=== PATIENT | male | born 2000 | race Asian ===

== ENCOUNTER 2019-02-16 02:09 | Emergency (ER) | payer BC ==
[2019-02-16] MEDS: NS 0.9% 1000 ML** 1,000 ML IV ONE (02:44)
[2019-02-16 02:46] LABS: ABS Eosinophils 0.1 10^3/ul (0-0.6); ABS Lymphocytes 0.7 10^3/ul (1.0-4.8); ABS Monocytes 0.8 10^3/ul (0-0.8); ABS Neutrophils 9.5 10^3/ul (1.5-7.7); Eosinophil % 0.7 %; Hematocrit 44 % (42-52); Hemoglobin 15.4 g/dL (14.0-18.0); Lymphocyte % 6.3 %; Mean Corpuscular HGB Conc 35 g/dL (31-36); Mean Corpuscular Hemoglobin 32 pg (27-31); Mean Corpuscular Volume 90 fL (80-94); Mean Platelet Volume 7.4 fL (7.4-10.4); Nucleated Red Blood Cells % 0.1; Platelet Count 193 10^3/uL (150-450); Red Blood Count 4.84 10^6 /uL (4.18-5.48); Red Cell Distribution Width 13 % (10-15)
[2019-02-16 03:00] LABS: ALT 29 U/L (7-52); AST 49 U/L (13-39); Albumin 4.5 g/dL (3.2-5.2); Albumin/Globulin Ratio 1.7 (1-3); Alkaline Phosphatase 64 U/L (34-104); Anion Gap 8 mmol/L (2-11); BUN/Creatinine Ratio 13.6 (8-20); Blood Urea Nitrogen 16 mg/dL (6-24); CO2 Carbon Dioxide 24 mmol/L (22-32); Calcium 8.9 mg/dL (8.6-10.3); Chloride 101 mmol/L (101-111); EGFR African American 96.2 (>60); EGFR Non-African American 79.5 (>60); Globulin 2.7 g/dL (2-4); Glucose 147 mg/dL (70-100); Potassium 3.9 mmol/L (3.5-5.0); Sodium 133 mmol/L (135-145); Total Protein 7.2 g/dL (6.4-8.9)
[2019-02-16 03:21] LABS: Acetaminophen < 15 mcg/mL; Alcohol < 10 mg/dL (<10); Salicylate < 2.50 mg/dL (<30)
--- NOTE | 2019-02-16 03:22 | ED ---
Substance Abuse/Use - HPI Summary HPI Summary: Patient is a 18 y/o M presenting to [facility] via EMS with complaints of chest tightness, SOB, nausea, fatigue and cough. He states that he took Ritalin extended release around 1400 02/15/19. Patient states that he consumed half a tablet of 15 mg Ritalin and crushed up and snorted the other half. He later crushed and snorted 5 mg of Adderal. At around 0100 02/16/19, patient used his Juul with THC. Sx subsequently onset. Patient reports that he has used these substances previously. He denies alcohol consumption with these substances. He notes that his Sx are improved at present. No daily medications reported. NKDA endorsed. FMHx of cardiac disease is denied. PSHx of right hand surgery. On triage, pain is rated 5/10. Nothing is noted to aggravate/alleviate Sx. Home medications and allergies are reviewed. - History Of Current Complaint Chief Complaint: EDSubstanceAbuse Stated Complaint: SOB PER EMS Time Seen by Provider: 02/16/19 02:14 Hx Obtained From: Patient Onset/Duration of Drug/ETOH Abuse: Hours Ingestion History: Type/Name Of Drug - ritalin, adderall, THC, Amount Ingested - 15 mg ritalin, 5 mg adderall, Approximate Time Of Ingestion - 1400 02/15/19 ritalin, 0100 02/16/19 THC Overdose Characteristics: Oral, Inhalation Severity Currently: Moderate Aggravating Factor(s): Nothing Alleviating Factor(s): Nothing Associated Signs And Symptoms: Shortness Of Breath, Chest Pain, Nausea, Cough, Other: - fatigue - Allergies/Home Medications Allergies/Adverse Reactions: Allergies Allergy/AdvReac Type Severity Reaction Status Date / Time No Known Allergies Allergy Verified 02/16/19 02:09 Home Medications: Home Medications NK [No Home Medications Reported] 02/16/19 [History Confirmed 02/16/19] PMH/Surg Hx/FS Hx/Imm Hx Sensory History: Denies: Hx Legally Blind, Hx Deafness Opthamlomology History: Denies: Hx Legally Blind EENT History: Denies: Hx Deafness - Surgical History Surgery Procedure, Year, and Place: right hand surgery Infectious Disease History: No Infectious Disease History: Denies: Traveled Outside the [place] in Last 30 Days - Family History Known Family History: Negative: Cardiac Disease - Social History Alcohol Use: Occasionally Substance Use Type: Reports: Marijuana, Other Substance Use Comment - Amount & Last Used: Ritalin Smoking Status (MU): Light Every Day Tobacco Smoker Review of Systems Constitutional: Other - positive - substance usage Positive: Fatigue Positive: Chest Pain Positive: Shortness Of Breath, Cough Positive: Nausea All Other Systems Reviewed And Are Negative: Yes Physical Exam - Summary Physical Exam Summary: General: Well-developed, Well-nourished male. Mild discomfort. HEENT: Normocephalic, Atraumatic. Eyes: Conjuctiva normal, PERRL. Oropharynx: Clear, mucous membranes moist, (-) exudates. Neck: Soft, FROM, (-) lymphadenopathy, (-) thyromegaly, (-) JVD. Cardiovascular: Normal sinus rhythm, (-) murmur. Lungs: Tachypnea noted. Clear to auscultation bilaterally (-) wheezes, (-) rales , (-) rhonchi. Abdomen: Soft, non-tender, non-distended, (-) organomegaly, normal bowel sounds. Back: (-) CVA tenderness Extremities: No edema. Skin: Warm, dry, (-) rash. Neuro: Alert and oriented x3, no focal deficits. Psychiatric: Moderately anxious appearing. Triage Information Reviewed: Yes Vital Signs On Initial Exam: Initial Vitals Pulse Resp BP Pulse Ox 92 19 158/97 98 02/16/19 02:09 02/16/19 02:09 02/16/19 02:09 02/16/19 02:09 Vital Signs Reviewed: Yes Procedures - Sedation Patient Received Moderate/Deep Sedation with Procedure: No Diagnostics - Vital Signs Vital Signs Temp Pulse Resp BP Pulse Ox 02/16/19 03:00 100 21 98 02/16/19 02:39 99 25 152/98 96 02/16/19 02:18 90 21 97 02/16/19 02:10 98.0 F 89 18 158/97 97 02/16/19 02:09 92 19 158/97 98 - Laboratory Lab Results: Lab Results 02/16/19 02/16/19 02/16/19 Range/Units 02:36 02:36 02:36 WBC 11.0 H (3.5-10.8) 10^3/uL RBC 4.84 (4.18-5.48) 10^6 /uL Hgb 15.4 (14.0-18.0) g/dL Hct 44 (42-52) % MCV 90 (80-94) fL MCH 32 H (27-31) pg MCHC 35 (31-36) g/dL RDW 13 (10-15) % Plt Count 193 (150-450) 10^3/uL MPV 7.4 (7.4-10.4) fL Neut % (Auto) 85.8 % Lymph % (Auto) 6.3 % [place] % (Auto) 6.9 % Eos % (Auto) 0.7 % Baso % (Auto) 0.3 % Absolute Neuts (auto) 9.5 H (1.5-7.7) 10^3/ul Absolute Lymphs (auto) 0.7 L (1.0-4.8) 10^3/ul Absolute Monos (auto) 0.8 (0-0.8) 10^3/ul Absolute Eos (auto) 0.1 (0-0.6) 10^3/ul Absolute Basos (auto) 0.0 (0-0.2) 10^3/ul Absolute Nucleated RBC 0.0 10^3/ul Nucleated RBC % 0.1 Sodium 133 L (135-145) mmol/L Potassium 3.9 (3.5-5.0) mmol/L Chloride 101 (101-111) mmol/L Carbon Dioxide 24 (22-32) mmol/L Anion Gap 8 (2-11) mmol/L BUN 16 (6-24) mg/dL Creatinine 1.18 H (0.67-1.17) mg/dL Est GFR ( Amer) 96.2 (>60) Est GFR (Non-Af Amer) 79.5 (>60) BUN/Creatinine Ratio 13.6 (8-20) Glucose 147 H (70-100) mg/dL Lactic Acid 0.9 (0.5-2.0) mmol/L Calcium 8.9 (8.6-10.3) mg/dL Total Bilirubin 0.90 (0.2-1.0) mg/dL AST 49 H (13-39) U/L ALT 29 (7-52) U/L Alkaline Phosphatase 64 (34-104) U/L Total Protein 7.2 (6.4-8.9) g/dL Albumin 4.5 (3.2-5.2) g/dL Globulin 2.7 (2-4) g/dL Albumin/Globulin Ratio 1.7 (1-3) TSH Pending Salicylates Pending Acetaminophen Pending Serum Alcohol Pending Result Diagrams: 02/16/19 02:36 02/16/19 02:36 Lab Statement: Any lab studies that have been ordered have been reviewed, and results considered in the medical decision making process. - EKG 0218 Cardiac Rate: NL - rate of 92 BPM EKG Rhythm: Sinus Rhythm Summary of EKG Findings: EKG showed NSR with rate of 92 BPM, no STEMI. EKG was reviewed and interpreted by ED physician. Re-Evaluation - Re-Evaluation First Eval Re-Evaluation Time: 03:19 Comment: Patient refused to provide urine. Course/Dx - Course Course Of Treatment: 18-year-old male [facility] with difficulty breathing. He admits to ingestion of multiple stimulants today. Patient denies any chest pain. During ED course, patient received fluids. Workup essentially negative. Patient refused to give a urine. Requested discharge soon after arrival. He was eventually discharged back to home. Follow up with PCP. Follow-up sooner for any worsening symptoms. - Diagnoses Provider Diagnoses: SOB (shortness of breath) Discharge ED - Sign-Out/Discharge Documenting (check all that apply): Patient Departure - discharge - Discharge Plan Condition: Stable Disposition: HOME Patient Education Materials: Shortness of Breath (ED) Forms: *Gen. Provider Communication Referrals: LOY Arreola [Z.BUSINESS, APPLICATION, OTHER] - 3 Days Additional Instructions: PLEASE RETURN TO ED FOR ANY NEW OR WORSENING SYMPTOMS. PLEASE FOLLOW UP WITH YOUR PRIMARY CARE PHYSICIAN WITHIN THREE DAYS. - Billing Disposition and Condition Condition: STABLE Disposition: Home - Attestation Statements Document Initiated by Scribe: Yes Documenting Scribe: JAKE JEROME Provider For Whom Ernestina is Documenting (Include Credential): ZORA WEINBERG MD Scribe Attestation: JAKE Forrest, scribed for ZORA WEINBERG MD on 02/16/19 at 0559. Scribe Documentation Reviewed: Yes Provider Attestation: The documentation as recorded by the JAKE eldridge accurately reflects the service I personally performed and the decisions made by me, ZORA WEINBERG MD Status of Scribe Document: Viewed
[2019-02-16 03:36] LABS: TSH (Thyroid Stimulating Horm) 2.06 mcIU/mL (0.34-5.60)
[2019-02-16 04:19] VITALS: BP 128/76
== END 2019-02-16 04:18 | disposition home or self-care (01) ==
LOC: ED 02:09
DX: R06.02 Shortness of breath (principal); F17.200 Nicotine dependence, unspecified, uncomplicated
CPT/HCPCS: 36415; 80053; 80320; 80329; 83605; 84443; 85025; 93005; 96360; 96361; 99283; G0480